=== PATIENT | male | born 1970 | race African-American/Black ===

== ENCOUNTER 2018-02-03 08:25 | Emergency (ER) | payer MEDICAID ==
[~2018-02-03] VITALS: Ht 175.3 cm; Wt 61.2 kg
[2018-02-03 08:35] VITALS: Ht 175.3 cm; Wt 61.2 kg
[2018-02-03 12:31] VITALS: BP 127/99
== END 2018-02-03 12:32 | disposition home or self-care (01) ==
LOC: ED 08:25
DX: R10.9 Unspecified abdominal pain (principal)
CPT/HCPCS: J1885

== ENCOUNTER 2018-02-03 13:00 | Inpatient (IN) | payer MEDICAID ==
[~2018-02-03] VITALS: Ht 167.6 cm; Wt 64.0 kg
[2018-02-03 14:52] LABS: BASOPHIL % 0.6 % (0-2); PLATELET COUNT 251 x10^3mcL (130-400); RED CELL DISTRIBUTION WIDTH 15.2 % (11.5-14.5)
[2018-02-03 14:58] LABS: CALCIUM 9.2 mg/dL (8.5-10.1); CARBON DIOXIDE 26.7 mmol/L (21-32); CHLORIDE SERUM 99 mmol/L (98-107); CREATININE SERUM 0.8 mg/dL (0.7-1.3); GFR1 > 60 mL/min; GLUCOSE SERUM 104 mg/dL (74-106); POTASSIUM SERUM 3.8 mmol/L (3.5-5.1); SODIUM SERUM 136 mmol/L (136-145)
[2018-02-03 15:04] LABS: ALBUMIN 3.8 g/dL (3.4-5.0); ALKALINE PHOSPHATASE 79 U/L (46-116); ALT/SGPT 19 U/L (16-63); AST/SGOT 10 U/L (15-37); BILIRUBIN TOTAL 0.2 mg/dL (0.20-1.00); CHOLESTEROL 119 mg/dL (<200); LACTIC DEHYDROGENASE (LDH) 138 U/L (100-190); PHOSPHOROUS 3.4 mg/dL (2.5-4.9); URIC ACID 4.6 mg/dL (3.5-7.2)
[2018-02-03 16:19] VITALS: BP 138/102
[2018-02-03 16:26] LABS: UA SPECIFIC GRAVITY >=1.030 (1.005-1.035); microscopic required? YES; urine erythrocyte 3+ (NEGATIVE)
[2018-02-03 16:34] LABS: AMPHETAMINE QUAL UR NONE DETECTED (NEG <=1000)
[2018-02-03 16:38] LABS: CHOLESTEROL/HDL RATIO 1.7
[2018-02-03 16:39] LABS: T3 TOTAL 0.61 ng/mL
[2018-02-03 16:40] LABS: FREE T4 1.37 ng/dL (0.76-1.46); FREE THYROXINE INDEX 3.2 ug/dL (1.4-4.5)
[2018-02-03 20:43] VITALS: BP 152/80
[2018-02-04 06:21] VITALS: BP 135/82
[2018-02-04 07:35] LABS: BASOPHIL % 0.3 % (0-2); PLATELET COUNT 270 x10^3mcL (130-400)
[2018-02-04 09:04] LABS: CHLORIDE SERUM 101 mmol/L (98-107); MAGNESIUM 2.1 mg/dL (1.8-2.4); POTASSIUM SERUM 4.3 mmol/L (3.5-5.1); SODIUM SERUM 136 mmol/L (136-145)
[2018-02-04 09:06] LABS: CARBON DIOXIDE 21.6 mmol/L (21-32); GLUCOSE SERUM 73 mg/dL (74-106)
[2018-02-04 09:07] LABS: CALCIUM 9.6 mg/dL (8.5-10.1); CREATININE SERUM 0.6 mg/dL (0.7-1.3); GFR1 > 60 mL/min; PHOSPHOROUS 3.4 mg/dL (2.5-4.9)
[2018-02-04 09:31] VITALS: BP 136/88
[2018-02-04 13:30] VITALS: BP 113/78
[2018-02-04 17:53] VITALS: BP 112/68
[2018-02-04 20:07] VITALS: BP 103/66
[2018-02-05 05:59] VITALS: BP 94/57
[2018-02-05 10:00] VITALS: BP 99/56
[2018-02-05] MEDS ORDERED: KEPPRA500 MG PO (13:00)
[2018-02-05] MEDS ORDERED: DILANTIN100 MG PO (13:01)
[2018-02-05 14:15] LABS: CALCIUM 9.2 mg/dL (8.5-10.1); CARBON DIOXIDE 23.5 mmol/L (21-32); CHLORIDE SERUM 96 mmol/L (98-107); CREATININE SERUM 1.1 mg/dL (0.7-1.3); GFR1 > 60 mL/min; GLUCOSE SERUM 134 mg/dL (74-106); MAGNESIUM 2.3 mg/dL (1.8-2.4); PHOSPHOROUS 2.9 mg/dL (2.5-4.9); SODIUM SERUM 133 mmol/L (136-145)
[2018-02-05 14:20] LABS: BASOPHIL % 0.5 % (0-2); PLATELET COUNT 215 x10^3mcL (130-400)
[2018-02-05 14:22] LABS: RED CELL DISTRIBUTION WIDTH 14.7 % (11.5-14.5)
[2018-02-05 20:52] VITALS: BP 129/57
[2018-02-05 23:30] VITALS: BP 113/64
[2018-02-06 04:50] VITALS: BP 117/67
[2018-02-06 06:41] LABS: CALCIUM 8.3 mg/dL (8.5-10.1); CARBON DIOXIDE 24.4 mmol/L (21-32); CHLORIDE SERUM 101 mmol/L (98-107); CREATININE SERUM 0.7 mg/dL (0.7-1.3); GFR1 > 60 mL/min; GLUCOSE SERUM 107 mg/dL (74-106); SODIUM SERUM 135 mmol/L (136-145)
[2018-02-06 06:55] LABS: BASOPHIL % 0.3 % (0-2); PLATELET COUNT 192 x10^3mcL (130-400)
[2018-02-06 06:56] LABS: BILIRUBIN DIRECT 0.12 mg/dL (0.0-0.2); BILIRUBIN TOTAL 0.34 mg/dL (0.20-1.00); TOTAL PROTEIN, SERUM 6.7 g/dL (6.4-8.2)
[2018-02-06 06:59] LABS: ALBUMIN 3.2 g/dL (3.4-5.0)
[2018-02-06 07:14] LABS: RED CELL DISTRIBUTION WIDTH 14.8 % (11.5-14.5)
[2018-02-06 09:12] VITALS: BP 93/51
[2018-02-06 21:12] VITALS: BP 103/56
[2018-02-07 05:49] VITALS: BP 96/57
[2018-02-07 07:32] LABS: BASOPHIL % 0.5 % (0-2); PLATELET COUNT 186 x10^3mcL (130-400)
[2018-02-07 08:19] LABS: CALCIUM 8.3 mg/dL (8.5-10.1); CARBON DIOXIDE 25.5 mmol/L (21-32); CHLORIDE SERUM 103 mmol/L (98-107); CREATININE SERUM 0.7 mg/dL (0.7-1.3); GFR1 > 60 mL/min; GLUCOSE SERUM 90 mg/dL (74-106); POTASSIUM SERUM 4.2 mmol/L (3.5-5.1); SODIUM SERUM 137 mmol/L (136-145)
[2018-02-07 08:45] VITALS: BP 109/64
[2018-02-07 16:51] VITALS: BP 109/72
[2018-02-07 22:06] VITALS: BP 118/78
[2018-02-08 05:50] VITALS: BP 124/77
[2018-02-08 06:59] LABS: CALCIUM 8.5 mg/dL (8.5-10.1); CARBON DIOXIDE 26.3 mmol/L (21-32); CHLORIDE SERUM 101 mmol/L (98-107); CREATININE SERUM 0.7 mg/dL (0.7-1.3); GFR1 > 60 mL/min; GLUCOSE SERUM 98 mg/dL (74-106); POTASSIUM SERUM 4.3 mmol/L (3.5-5.1); SODIUM SERUM 136 mmol/L (136-145)
[2018-02-08 07:55] LABS: BASOPHIL % 0.5 % (0-2); PLATELET COUNT 184 x10^3mcL (130-400)
[2018-02-08] MEDS ORDERED: SEROQUEL100 MG PO (11:35)
[2018-02-08] MEDS ORDERED: SEROQUEL200 MG PO (11:37)
[2018-02-08] MEDS ORDERED: SEROQUEL300 MG PO (11:39)
[2018-02-08] MEDS ORDERED: LEXAPRO10 MG PO (11:40)
[2018-02-08] MEDS ORDERED: SEROQUEL50 M1 PO (11:51)
[2018-02-08] MEDS ORDERED: PEPCID20 MG PO (11:52)
[2018-02-08 12:39] VITALS: Ht 167.6 cm; Wt 64.0 kg
[2018-02-08 12:49] VITALS: BP 94/50
[2018-02-08 12:59] VITALS: BP 94/50
== END 2018-02-08 17:17 | disposition home or self-care (01) | DRG 812 ==
LOC: ED 13:00 → DU 15:27 → MU 02-07 08:39
PROVIDERS: Emergency Medicine; Family Medicine
DX: T40.7X1A Poisoning by cannabis (derivatives), accidental (unintentional), initial encounter (principal); N17.0 Acute kidney failure with tubular necrosis; G92 Toxic encephalopathy; F33.3 Major depressive disorder, recurrent, severe with psychotic symptoms; F12.90 Cannabis use, unspecified, uncomplicated; N20.0 Calculus of kidney; K27.9 Peptic ulcer, site unspecified, unspecified as acute or chronic, without hemorrhage or perforation; R31.9 Hematuria, unspecified; G40.909 Epilepsy, unspecified, not intractable, without status epilepticus; D64.9 Anemia, unspecified; Z59.0 Homelessness; Y92.89 Other specified places as the place of occurrence of the external cause
CPT/HCPCS: 83880; 84439; G0480; J0780; J1885; J2060; J7030; Q0092